=== PATIENT | female | born 1950 | race Hispanic/Latino ===

== ENCOUNTER → 2024-08-16 | Outpatient (CLI) | payer OTHER | END | disposition home or self-care (01) | LOC: RAH 09:29 | PROVIDERS: ATTEND Internal Medicine | DX: N28.1 Cyst of kidney, acquired (principal); R31.21 Asymptomatic microscopic hematuria | CPT/HCPCS: 76770 ==

== ENCOUNTER → 2025-03-07 | Outpatient (CLI) | payer OTHER ==
--- NOTE | 2025-03-07 14:15 | HMCIMG ---
Exam Type: US RENAL SONOGRAM Clinical Information: RENAL CYST Comparison: August 16, 2024 Findings: Examination shows normal renal size and echogenicity bilaterally. Preserved cortical thickness and corticomedullary junction region is seen. No hydronephrosis or calculi are seen. No renal masses are seen. There is no evidence of perinephric fluid on either side. No evidence of significant ureteral dilatation is seen. Right renal simple parapelvic cyst measuring 8 mm, smaller than on prior exam. The right kidney measures 10.6 x 4.4 cm. The left kidney measures 9.5 x 3.5 cm. The urinary bladder is normal. No bladder masses, stones, or wall thickening is seen. IMPRESSION: Decrease in size of the right renal simple cyst.
== END | disposition home or self-care (01) ==
LOC: RAH 13:35
PROVIDERS: ATTEND Internal Medicine
DX: N28.1 Cyst of kidney, acquired (principal); N28.89 Other specified disorders of kidney and ureter
CPT/HCPCS: 76770